=== PATIENT | female | born 1945 | race Caucasian/White ===

== ENCOUNTER 2023-03-04 09:44 | Day surgery (SDC) | payer MEDICARE ==
[2023-03-04] MEDS ORDERED: Midazolam 1 MG/ML 2 ML SDV IV ONE (09:45)
[2023-03-04] MEDS ORDERED: fentaNYL 100 MCG/2 ML SDV IV ONE (09:45)
[2023-03-04] MEDS ORDERED: Lactated Ringers 1,000 ML IV PRN (10:00)
[2023-03-04] MEDS ORDERED: Sodium Chloride 0.9% 10 ML Syringe FLUSH PRN (10:00)
[2023-03-04] MEDS ORDERED: acetaZOLAMIDE 500 MG Cap.ER PO ONE (12:00)
== END 2023-03-04 12:35 | disposition home or self-care (01) ==
LOC: FB.SDS 09:44
PROVIDERS: ATTEND Ophthalmology
DX: H25.13 Age-related nuclear cataract, bilateral (principal); M54.50 Low back pain, unspecified; G89.29 Other chronic pain; F32.A Depression, unspecified; K21.9 Gastro-esophageal reflux disease without esophagitis; Z79.899 Other long term (current) drug therapy; Z88.5 Allergy status to narcotic agent; Z87.891 Personal history of nicotine dependence
CPT/HCPCS: 00142; A9270-GY; J2250; J3010; J7120; V2632

== ENCOUNTER 2023-03-18 09:20 | Day surgery (SDC) | payer MEDICARE ==
[2023-03-18] MEDS ORDERED: fentaNYL 100 MCG/2 ML SDV IV ONE (09:21)
[2023-03-18] MEDS ORDERED: Midazolam 1 MG/ML 2 ML SDV IV ONE (09:21)
[2023-03-18] MEDS ORDERED: Sodium Chloride 0.9% 10 ML Syringe FLUSH PRN (09:30)
[2023-03-18] MEDS ORDERED: Lactated Ringers 1,000 ML IV PRN (09:30)
[2023-03-18] MEDS ORDERED: acetaZOLAMIDE 500 MG Cap.ER PO ONE (11:30)
== END 2023-03-18 12:03 | disposition home or self-care (01) ==
LOC: FB.SDS 09:20
PROVIDERS: ATTEND Ophthalmology
DX: H25.13 Age-related nuclear cataract, bilateral (principal); M54.50 Low back pain, unspecified; G89.29 Other chronic pain; F32.A Depression, unspecified; K21.9 Gastro-esophageal reflux disease without esophagitis; Z79.899 Other long term (current) drug therapy; Z87.891 Personal history of nicotine dependence; Z88.5 Allergy status to narcotic agent
CPT/HCPCS: 00142; A9270-GY; J2250; J3010; J7120; V2632

== ENCOUNTER → 2025-04-22 | Day surgery (SDC) | payer MEDICARE ==
[~2025-04-22] MED LIST: Ketamine 500 mg/10 ML MDV IV ONE; Lactated Ringers 1,000 ML IV SCH; Lidocaine 2% 100 MG/5 ML Syringe IVPUSH ONE; Midazolam 1 MG/ML 2 ML SDV IV ONE; Phenylephrine 0.5% Nasal Spray 15 ML Bot NAS ONE; Propofol 200 MG/20 ML SDV IV ONE; Sodium Chloride 0.9% 10 ML Syringe FLUSH PRN
[2025-04-22] MEDS: Simethicone Drops 40 MG/0.6 ML 30 ML Bottle ONE (07:48)
== END | disposition home or self-care (01) ==
LOC: FB.SDS 06:54
PROVIDERS: ATTEND Surgery
DX: Z12.11 Encounter for screening for malignant neoplasm of colon (principal); D12.6 Benign neoplasm of colon, unspecified; K57.30 Diverticulosis of large intestine without perforation or abscess without bleeding; K21.9 Gastro-esophageal reflux disease without esophagitis; F32.A Depression, unspecified; Z87.891 Personal history of nicotine dependence; Z79.899 Other long term (current) drug therapy; Z88.5 Allergy status to narcotic agent; Z91.048 Other nonmedicinal substance allergy status; Z80.0 Family history of malignant neoplasm of digestive organs
CPT/HCPCS: 88305; A9270-GY; J2250; J2704; J3490

== ENCOUNTER 2025-05-06 06:04 | Day surgery (SDC) | payer MEDICARE ==
[2025-05-06] MEDS ORDERED: Propofol 200 MG/20 ML SDV IV ONE (06:05)
[2025-05-06] MEDS ORDERED: Sodium Chloride 0.9% 10 ML Syringe FLUSH PRN (07:00)
[2025-05-06] MEDS: Lactated Ringers 1,000 ML IV SCH (07:00)
== END 2025-05-06 08:46 | disposition home or self-care (01) ==
LOC: FB.SDS 06:04
PROVIDERS: ATTEND Surgery
DX: K21.00 Gastro-esophageal reflux disease with esophagitis, without bleeding (principal); R13.10 Dysphagia, unspecified; K22.89 Other specified disease of esophagus; K44.9 Diaphragmatic hernia without obstruction or gangrene; Z88.8 Allergy status to other drugs, medicaments and biological substances; Z91.09 Other allergy status, other than to drugs and biological substances; Z87.891 Personal history of nicotine dependence; Z79.899 Other long term (current) drug therapy
CPT/HCPCS: 00731; 88305; 99100; J2704; J7120